=== PATIENT | male | born 1980 | race African-American/Black ===

== ENCOUNTER 2018-07-25 12:29 | Emergency (ER) | payer MEDICAID ==
[~2018-07-25] VITALS: Ht 177.8 cm; Wt 109.0 kg
[2018-07-25 19:19] VITALS: BP 140/88
== END 2018-07-25 19:19 | disposition home or self-care (01) ==
LOC: ER 12:46
DX: B02.9 Zoster without complications (principal); R03.0 Elevated blood-pressure reading, without diagnosis of hypertension
CPT/HCPCS: 99283